=== PATIENT | female | born 2005 | race Two or more races ===

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

== ENCOUNTER 2024-08-10 21:03 | Emergency (ER) | payer MEDICAID, OTHER ==
[~2024-08-10] VITALS: Ht 157.5 cm; Wt 79.8 kg
[2024-08-10 21:57] LABS: Urine Bacteria None Seen /hpf (None Seen)
[2024-08-10 22:17] LABS: Urine Blood Negative /uL (Negative); Urine Clarity Turbid (Clear); Urine Color Light-Yellow (Yellow); Urine Protein, UAD Negative (Negative); Urine Specific Gravity 1.016 (1.001-1.035); Urine Squamous Epithelial Cell FEW /hpf (<5); Urine Urobilinogen Normal (Negative); Urine WBC 4 /hpf (0 - 5); Urine pH 5.5 (5.0-9.0)
[2024-08-10 22:20] LABS: Basophils # (auto) 0 10 ^3/uL (0-0.2); Basophils % (auto) 0.5 % (0.0-2.0); Eosinophils # (auto) 0.1 10 ^3/uL (0-0.8); Eosinophils % (auto) 1.3 % (0.0-7.0); Hematocrit 38.5 % (36.0-46.0); Hemoglobin 13.2 g/dL (12.2-16.2); Lymphocytes # (auto) 2.3 10 ^3/uL (0.4-5.4); Mean Corpuscular Hemoglobin 29.4 pg (28.0-32.0); Mean Corpuscular Hgb Conc. 34.3 g/dL (32.0-36.0); Mean Corpuscular Volume 85.8 fL (80.0-100.0); Monocytes # (auto) 0.3 10 ^3/uL (0-1.3); Neutrophils # (auto) 6.1 10 ^3/uL (1.6-8.6); Neutrophils % (auto) 69.2 % (37.0-80.0); Nucleated Red Blood Cells % 0.1 %; Platelet Count (auto) 359 10^3/uL (140-450); Red Blood Cells 4.48 10^6/uL (4.0-5.20); Red Cell Distribution Width 13.6 % (11.8-14.3); White Blood Cell 8.8 10^3/uL (4.4-10.8)
[2024-08-10 22:33] LABS: Alanine Aminotransferase 18 U/L (7-40); Albumin 4.7 g/dL (3.2-4.8); Anion Gap 6 (5-15); Aspartate Aminotransferase 19 U/L (13-40); BUN/Creatinine Ratio 14.6 (10.0-20.0); Bilirubin, Total 0.5 mg/dL (0.2-1.0); Blood Urea Nitrogen 12 mg/dL (9-23); Calcium 9.9 mg/dL (8.7-10.4); Carbon Dioxide 27 mmol/L (20-31); Chloride 104 mmol/L (98-107); Lipase 41 U/L (12-53); Potassium 3.7 mmol/L (3.5-5.1); Sodium 137 mmol/L (136-145); Total Protein 7.6 g/dL (5.7-8.2)
[2024-08-10 22:38] LABS: Alkaline Phosphatase 124 U/L (46-116); Glucose 143 mg/dL (74-106)
--- NOTE | 2024-08-10 23:35 | ED.PDOC ---
History of Present Illness HPI Comments 19 y/o F, with a Hx of CKF, HTN, H. pylori, hemorrhoids, and seizures, presents with c/o non-radiating, diffused abdominal pain, nausea, vomiting, coffee ground emesis, and generalized weakness, today. Patient endorses on unprovoked onset of symptoms that began, initially, with cramping pain in her lower abdomen 4 days ago prior to it radiating across her abdomen, with additional onset of remaining aforementioned symptoms, today. She comments on pain being constant and rates it a 7/10, with no relief or improvement with 1000mg [id number] Tylenol medication use. Patient also stated on vomitus being "black" in appearance, with last meal reported to be white rice, carrots, broccoli, chicken, and water. She endorses on history of eating healthy and having 1x episode of melena stools in the past when she had hemorrhoids then years ago. Patient reports no additional relevant or pertinent Hx, such as current , spoiled food intake, injuries, sick contact, or travel. She denies having any diarrhea, urinary symptoms, blood-streaked stools, melena, fever, chills, lightheadedness, or other associated symptoms or modifiers at this time. Chief Complaint: Abdominal Pain Time Seen by MD: 21:50 Reviewed Notes: Nurses Notes, Medications, Allergies Allergies: Coded Allergies: NO KNOWN ALLERGIES (Unverified , 06/03/17) Home Meds Active Scripts Cefpodoxime Proxetil (Cefpodoxime Proxetil) 200 Mg Tab, 200 MG PO BID for 10 Days, #20 TAB Prov:ASHLEY ZENG MD 04/15/22 Information Source: Patient Mode of Arrival: Ambulatory Severity: Moderate Timing: Days Duration: Since onset Prehospital treatment: None Review of Systems: REVIEW OF SYSTEMS: No fever, no chills, or fatigue HEENT: No sore throat, no earache, no congestion, no neck pain. Cardiac: No chest pain. No palpitations. Lungs: No shortness of breath, no cough. GI: diffused abdominal pain, nausea, vomiting, coffee-ground emesis, no diarrhea, no constipation : No dysuria, frequency, or urgency. No hematuria. Musculoskeletal: No joint pain , no joint swelling, no extremity edema. Skin: No rash, no itching. Neuro: Weakness, no headache, no dizziness Vital Signs Vital Signs Date Time Temp Pulse Resp B/P (MAP) Pulse Ox O2 Delivery O2 Flow Rate FiO2 08/11/24 00:23 93 16 97 Room Air* 0 21 08/10/24 23:42 98.7 119/85 (96) 98.7 Physical Exam General: Awake, alert and oriented. No acute distress. Skin: Skin in warm, dry and intact. Appropriate color for ethnicity. Nailbeds pink with no cyanosis. HEENT: The head is normocephalic and atraumatic. Conjunctivae are clear without exudates or hemorrhage. Sclera is non-icteric. EOM are intact. No signs of nystagmus. Eyelids are normal in appearance without swelling or lesions. Oral mucosa is pink and moist Neck: The neck is supple with normal range of motion. No JVD. Cardiac: Heart rate and rhythm are normal. No murmurs, gallops, or rubs are auscultated. Respiratory: No signs of respiratory distress. Lung sounds are clear in all lobes bilaterally without rales, ronchi, or wheezes. Abdominal: Generalized abdominal tenderness; otherwise, abdomen is soft, without distention. Bowel sounds are present and normoactive in all four quadrants. No CVA tenderness. Extremities: Upper and lower extremities are atraumatic in appearance without deformity or edema. Neurological: The patient is awake, alert and oriented to person, place, and time with normal speech. Speech is clear. There is no facial asymmetry. Psychiatric: Appropriate mood and affect. Good judgement and insight. No visual or auditory hallucinations. Past Medical History PAST MEDICAL HISTORY: CKF, HTN, Seizures Past Medical History (Other): H. pylori, hemorrhoids Surgical History: Denies all surgeries PLANT ELECTRICIAN History: Denies all PLANT ELECTRICIAN Hx Family History Family History: Reviewed,noncontributory to illness Social History Smoker: Other (vape) Alcohol: Denies ETOH Use Drugs: Denies Drug Use Lives In: Home Was a procedure done? Was a procedure done?: No Differential Dx Considerations may include: Differential diagnoses considered include: Abdominal aortic aneurysm, AR, esophageal rupture, intestinal obstruction, mesenteric ischemia, perforated viscus or solid organ rupture, CHF with hepatomegaly, pneumonia, abscess, appendicitis, biliary disease, diverticulitis, gastritis, gastroenteritis, hepatitis, hernia, inflammatory bowel disease, pancreatitis, peptic ulcer disease, urinary tract infection, ureteral colic, constipation, GERD, irritable syndrome, abdominal wall pain, nonspecific abdominal pain, herpes zoster. Also ruptured ectopic , ovarian torsion/cyst, tubo-ovarian abscess, PID, endometriosis, mittleschmerz. X-Ray, Labs, Meds, VS Vital Signs Date Time Temp Pulse Resp B/P (MAP) Pulse Ox O2 Delivery O2 Flow Rate FiO2 08/11/24 00:23 93 16 97 Room Air* 0 21 08/10/24 23:42 98.7 93 16 119/85 (96) 97 98.7 08/10/24 21:31 97.4 91 16 127/94 (105) 98 Lab Test 08/10/24 21:59 08/10/24 21:30 Range/Units White Blood Count 8.8 4.4-10.8 10^3/uL Red Blood Count 4.48 4.0-5.20 10^6/uL Hemoglobin 13.2 12.2-16.2 g/dL Hematocrit 38.5 36.0-46.0 % Mean Corpuscular Volume 85.8 80.0-100.0 fL Mean Corpuscular Hemoglobin 29.4 28.0-32.0 pg Mean Corpuscular Hemoglobin Concent 34.3 32.0-36.0 g/dL Red Cell Distribution Width 13.6 11.8-14.3 % Platelet Count 359 140-450 10^3/uL Mean Platelet Volume 8.0 6.9-10.8 fL Neutrophils (%) (Auto) 69.2 37.0-80.0 % Lymphocytes (%) (Auto) 26.0 10.0-50.0 % Monocytes (%) (Auto) 3.0 0.0-12.0 % Eosinophils (%) (Auto) 1.3 0.0-7.0 % Basophils (%) (Auto) 0.5 0.0-2.0 % Neutrophils # (Auto) 6.1 1.6-8.6 10 ^3/uL Lymphocytes # (Auto) 2.3 0.4-5.4 10 ^3/uL Monocytes # (Auto) 0.3 0-1.3 10 ^3/uL Eosinophils # (Auto) 0.1 0-0.8 10 ^3/uL Basophils # (Auto) 0 0-0.2 10 ^3/uL Nucleated Red Blood Cells 0.1 % Sodium Level 137 136-145 mmol/L Potassium Level 3.7 3.5-5.1 mmol/L Chloride Level 104 98-107 mmol/L Carbon Dioxide Level 27 20-31 mmol/L Anion Gap 6 5-15 Blood Urea Nitrogen 12 9-23 mg/dL Creatinine 0.82 0.550-1.02 mg/dL Glomerular Filtration Rate Calc 104 >90 mL/min BUN/Creatinine Ratio 14.6 10.0-20.0 Serum Glucose 143 H 74-106 mg/dL Lactic Acid Level 1.8 0.4-2.0 mmol/L Calcium Level 9.9 8.7-10.4 mg/dL Total Bilirubin 0.5 0.2-1.0 mg/dL Aspartate Amino Transferase (AST) 19 13-40 U/L Alanine Aminotransferase (ALT) 18 7-40 U/L Alkaline Phosphatase 124 H 46-116 U/L Total Protein 7.6 5.7-8.2 g/dL Albumin 4.7 3.2-4.8 g/dL Lipase 41 12-53 U/L Urine Color Light-yellow Yellow Urine Clarity Turbid H Clear Urine pH 5.5 5.0-9.0 Urine Specific Jarales 1.016 1.001-1.035 Urine Protein Negative Negative Urine Ketones Negative Negative Urine Blood Negative Negative /uL Urine Nitrite Negative Negative Urine Bilirubin Negative Negative Urine Urobilinogen Normal Negative mg/dL Urine Leukocyte Esterase Negative Negative /uL Urine RBC <1 0 - 4 /hpf Urine WBC 4 0 - 5 /hpf Urine Squamous Epithelial Cells Few <5 /hpf Urine Bacteria None seen None Seen /hpf Urine Glucose Normal Normal mg/dL Urine Test Negative Negative Current Medications Medications (Trade) Dose Ordered Sig/Cinthya Route Start Time Stop Time Status Last Admin Pantoprazole Sodium (Protonix) 40 mg ONCE ONCE IV 08/10/24 22:00 08/10/24 22:01 DC 08/11/24 00:14 Ondansetron HCl (Zofran) 4 mg ONCE ONCE IV 08/10/24 22:00 08/10/24 22:01 DC 08/11/24 00:14 Sodium Chloride 1,000 ml @ 1,000 mls/hr Q1H ONCE IV 08/10/24 22:00 08/10/24 22:59 DC 08/11/24 00:14 Ketorolac Tromethamine (Toradol Injection) 15 mg ONCE ONCE IV 08/10/24 22:30 08/10/24 22:31 DC 08/11/24 00:15 Time of 1ST Reevaluation: 22:20 Reevaluation 1ST: Unchanged Patient Education/Counseling: Diagnosis, Treatment Family Education/Counseling: No Family Present Departure 1 Departure Time of Disposition: 00:40 Impression: Primary Impression: Abdominal pain Disposition: 01 HOME / SELF CARE / HOMELESS Condition: Stable Additional Instructions: ED DISCHARGE INSTRUCTIONS Instructions: Please read all instructions provided in this packet carefully. Although you have been discharged from the Emergency Department, this does not mean that you have a "clean bill of health". No definitive diagnosis for your symptoms has been made today. It is possible that you are in the process of developing a serious illness. This is why you must return to the ED without fail if any new or worsening symptoms (especially if your symptoms include chest pain, trouble breathing, abdominal pain, fever, headache, confusion, trouble seeing, or trouble walking) It is also very important that you see a primary care doctor within the next 3-5 days to follow up. If you are unable to get an appointment, return to the ED for re-evaluation. Abdominal Pain: Care Instructions Overview Abdominal pain has many possible causes. Some aren't serious and get better on their own in a few days. Others need more testing and treatment. If your pain continues or gets worse, you need to be rechecked and may need more tests to find out what is wrong. You may need surgery to correct the problem. Don't ignore new symptoms, such as fever, nausea and vomiting, urination problems, pain that gets worse, and dizziness. These may be signs of a more serious problem. If you are not getting better, you may need more tests or treatment. The doctor has checked you carefully, but problems can develop later. If you notice any problems or new symptoms, get medical treatment right away. Follow-up care is a mack part of your treatment and safety. Be sure to make and go to all appointments, and call your doctor if you are having problems. It's also a good idea to know your test results and keep a list of the medicines you take. How can you care for yourself at home? Rest until you feel better. To prevent dehydration, drink plenty of fluids. Choose water and other clear liquids until you feel better. If you have kidney, heart, or liver disease and have to limit fluids, talk with your doctor before you increase the amount of fluids you drink. When you feel like eating, start with small amounts. Do not have alcohol, caffeine, or spicy, hot, or high-fat foods for a day or two. Avoid anti-inflammatory medicines such as aspirin, ibuprofen (Advil, Motrin), and naproxen (Aleve). These can cause stomach upset. Talk to your doctor if you take daily aspirin for another health problem. When should you call for help? Call 911 anytime you think you may need emergency care. For example, call if: You passed out (lost consciousness). You pass maroon or very bloody stools. You vomit blood or what looks like coffee grounds. You have severe belly pain. Call your doctor now or seek immediate medical care if: Your pain gets worse, especially if it becomes focused in one area of your belly. You have a new or higher fever. Your stools are black and look like tar, or they have streaks of blood. You have unexpected vaginal bleeding. You have symptoms of a urinary tract infection. These may include: Pain when you urinate. Urinating more often than usual. Blood in your urine. You are dizzy or lightheaded, or you feel like you may faint. Watch closely for changes in your health, and be sure to contact your doctor if: You are not getting better as expected. Credits for Abdominal Pain: Care Instructions Current as of: May 15, 2023 Author: [employer], [facility] Staff Clinical Review Board All [employer] education is reviewed by a team that includes physicians, nurses, advanced practitioners, registered dieticians, and other healthcare professionals. Comments [age] female with a history of H pylori presented with abdominal pain. No peritoneal signs on abdominal exam. No evidence of acute abdomen at this time. patient is well appearing. Labs show no leukocytosis or elevates of LFTs. Imaging shows no acute process. Patient is afebrile. Patient is not hypotensive. Low suspicion for acute hepatobiliary disease (including acute cholecystitis, acute pancreatitis, PUD (including perforation), acute infectious process (pneumonia, hepatitis, pyelonephritis), acute appendicitis, vascular catastrophe, bowel obstructions, viscous perforatio. Presentation not consistent with other acute, emergent causes of abdominal pain at this time Patient well-appearing, nontoxic. Advised prompt follow-up with PCP, return to the ED with any new, worsening or concerning symptoms. I reviewed the following notes from the pt's past medical encounters: Encounter for abdominal pain August 16, 2022 The following tests were ordered, and results were reviewed by me: (See diagnostic results section) The following test were independently interpreted by me: N/A Additional information was gathered from interviewing the following independent historians: (N/A) I reviewed and agreed with the following test results read by other providers: N/A I discussed treatments and results with medical personnel and: N/A Decision regarding hospitalization or escalation of hospital level of care: Risks and benefits of admission for further treatment of patient's condition was considered however due to patient's stable condition patient will be discharged to follow up closely or return to care for worsening of condition or inability to follow up. Critical Care Note Critical Care Time?: No Stability Stability form required: No Heart Score Heart Score: Heart Score Response (Comments) Value History N/A 0 EKG N/A 0 Age N/A 0 Risk Factors N/A 0 Troponin N/A 0 Total 0 I personally scribed for RUSSELL ELIAS MD ([email or web address]) on 08/10/24 at 23:35. Electronically submitted by Haim Edward ([email or web address]). I personally scribed for RUSSELL ELIAS MD ([email or web address]) on 08/11/24 at 00:17. Electronically submitted by Haim Edward ([email or web address]). RUSSELL ELIAS MD Aug 10, 2024 23:35
[2024-08-10 23:42] VITALS: BP 119/85; TEMP 98.7
--- NOTE | 2024-08-11 00:03 | DVH ---
CLINICAL HISTORY: Right upper quadrant, right lower quadrant pain, coffee-grou TECHNIQUE: CT of the abdomen and pelvis was performed with intravenous contrast. This exam was perfor med according to our departmental dose optimization program. Up-to-date CT equipment and radiation do se reduction techniques are utilized as appropriate. CTDIVol: [CTDIvol] mGy DLP: 540.94 mGy-cm WID: COMPARISON: None FINDINGS: Lower Thorax: Unremarkable. Liver and Biliary system: Mild hepatomegaly with the right lobe of the liver measuring 18 cm cranioca udal. There is borderline hepatic steatosis. No discrete hepatic lesion. Major portal veins are paten t. Gallbladder is normal caliber. There is no biliary ductal dilatation. Spleen: Unremarkable. Adrenal Glands and Kidneys: Unremarkable. Pancreas and Retroperitoneum: Unremarkable. Aorta and Major Vessels: Unremarkable. Bowel, Mesentery and Peritoneal space: Trace ascites in the pelvis likely physiologic. Normal caliber small and large bowel. Normal appendix. No free air or fluid collection. Pelvis: Retroverted uterus. Grossly normal ovaries. Normal urinary bladder. No pelvic lymphadenopath y. Abdominal wall and Osseous Structures: No destructive osseous lesion. IMPRESSION: 1. No acute abnormality in the abdomen or pelvis. 2. Mild hepatomegaly with borderline hepatic steatosis.
[2024-08-11] MEDS: PANTOPRAZOLE 40 MG/10 ML VIAL INJ IV ONE (00:14)
[2024-08-11] MEDS: SODIUM CHLORIDE 0.9% 1,000 ML IV ONE (00:14)
[2024-08-11] MEDS: ONDANSETRON HCL 4 MG/2 ML VIAL IV ONE (00:14)
[2024-08-11] MEDS: KETOROLAC TROMETH 30 MG/ML 1ML VIAL IV ONE (00:15)
[2024-08-11] MEDS: IOHEXOL 300 MG/ML 100ML BOTTLE IJ ONE (00:15)
[2024-08-11 00:23] VITALS: PULSE 93; RESP 16; O2SAT 97
== END 2024-08-11 01:39 | disposition home or self-care (01) ==
LOC: ER 21:03
DX: R10.84 Generalized abdominal pain (principal); I10 Essential (primary) hypertension
CPT/HCPCS: 36415; 74177; 80053; 81001; 81025; 83605; 83690; 85025; 96361; 96374; 96375; 99285; J1885; J2405; J2470; J7030; Q9967

== ENCOUNTER 2024-09-16 13:48 | Emergency (ER) | payer MEDICAID ==
[~2024-09-16] VITALS: Ht 157.5 cm; Wt 75.0 kg
[2024-09-16 13:55] VITALS: BP 116/76; PULSE 78; RESP 16; O2SAT 100
--- NOTE | 2024-09-16 14:10 | ED.PDOC ---
History of Present Illness HPI Comments 19 y/o F, BIBA with PMHX of HTN and Seizures presents to the ED for CC of syncopal episode. Per EMS, patient states that she was giving her child a bath when she suddenly passed out and started foaming at the mouth. Patient endorses on, currently being 7 weeks ; last menstrual period was on 08/01/24. Patient denies head injury, headache, weakness, vaginal bleeding, vaginal cramping, abdominal pain or nausea. No other associated symptom's, modifiers, recent injuries or sick contacts at this time. Chief Complaint: Syncope Time Seen by MD: 14:06 Reviewed Notes: Nurses Notes, Carton Marker Machine Notes, Medications, Allergies Allergies: Coded Allergies: NO KNOWN ALLERGIES (Unverified , 06/03/17) Home Meds Active Scripts Cefpodoxime Proxetil (Cefpodoxime Proxetil) 200 Mg Tab, 200 MG PO BID for 10 Days, #20 TAB Prov:ASHLEY ZENG MD 04/15/22 Information Source: Patient, Emergency Med Personnel Mode of Arrival: EMS Severity: Moderate Timing: Minutes Duration: Since onset Prehospital treatment: None Past Medical History PAST MEDICAL HISTORY: CKF, HTN, Seizures Surgical History: Denies all surgeries UNDERCOLLAR BASTER History: Denies all UNDERCOLLAR BASTER Hx Family History Family History: Reviewed,noncontributory to illness Social History Smoker: Other Alcohol: Denies ETOH Use Drugs: Denies Drug Use Lives In: Home Constitutional: denies: chills, diaphoresis, fatigue, fever, malaise, sweats, weakness, others EENTM: denies: blurred vision, double vision, ear bleeding, ear discharge, ear drainage, ear pain, ear ringing, eye pain, eye redness, hearing loss, mouth pain, mouth swelling, nasal discharge, nose bleeding, nose congestion, nose pain, photophobia, tearing, throat pain, throat swelling, voice changes, others Respiratory: denies: cough, hemoptysis, orthopnea, SOB at rest, shortness of breath, SOB with excertion, stridor, wheezing, others Cardiovascular: denies: chest pain, dizzy spells, diaphoresis, Dyspnea on exertion, edema, irregular heart beat, left arm pain, lightheadedness, palpitations, PND, syncope, others Gastrointestinal: denies: abdomen distended, abdominal pain, blood streaked bowels, constipated, diarrhea, dysphagia, difficulty swallowing, hematemesis, melena, nausea, poor appetite, poor fluid intake, rectal bleeding, rectal pain, vomiting, others Genitourinary: denies: abnormal vagina bleeding, burning, dyspareunia, dysuria, flank pain, frequency, hematuria, incontinence, pain, , vagina discharge, urgency, others Neurological: denies: dizziness, fainting, headache, left sided numbness, left sided weakness, numbness, paresthesia, pre-existing deficit, right sided numbness, right sided weakness, seizure, speech problems, tingling, tremors, weakness, others Musculoskeletal: denies: back pain, gout, joint pain, joint swelling, muscle pain, muscle stiffness, neck pain, others Integumetry: denies: bruises, change in color, change in hair/nails, dryness, laceration, lesions, lumps, rash, wounds, others Allergic/Immunocompromised: denies: Difficulty Healing, Frequent Infections, Hives, Itching, others Hematologic/Lymphatic: denies: anemia, blood clots, easy bleeding, easy bruising, swollen glands, others Endocrine: denies: excessive hunger, excessive sweating, excessive thirst, excessive urination, flushing, intolerance to cold, intolerance to heat, u nexplained weight gain, unexplained weight loss, others Psychiatric: denies: anxiety, bipolar disorder, depression, hopeless, panic disorder, schizophrenia, sleepless, suicidal, others All Other Systems: Reviewed and Negative Physical Exam General Appearance: Moderate Distress HEENT: Normal ENT Inspection, Pharynx Normal, TMs Normal Neck: Full Range of Motion, Non-Tender, Normal, Normal Inspection Respiratory: Chest Non-Tender, Lungs Clear, No Accessory Muscle Use, No Respiratory Distress, Normal Breath Sounds Cardiovascular: No Edema, No JVD, No Murmur, No Gallop, Normal Peripheral Pulses, Regular Rate/Rhythm Breast Exam: Deferred Gastrointestinal: No Organomegaly, Non Tender, No Pulsatile Mass, Normal Bowel Sounds, Soft Genitalia: Deferred Pelvic: Deferred Rectal: Deferred Extremities: No calf tenderness, Normal capillary refill, Normal inspection, Normal range of motion, Non-tender, No pedal edema Musculoskeletal : Apperance: Normal Neurologic: Alert, mining support worker II-XII nml as Tested, No Motor Deficits, Normal Affect, Normal Mood, No Sensory Deficits Cerebellar Function: Normal Reflexes: Normal Skin: Dry, Normal Color, Warm Peripheral Pulses: 3+ Radial (R), 3+ Radial (L) Lymphatic: No Adenopathy Was a procedure done? Was a procedure done?: No Differential Dx Considerations may include: Anemia Electrolyte imbalance X-Ray, Labs, Meds, VS Vital Signs Date Time Temp Pulse Resp B/P (MAP) Pulse Ox O2 Delivery O2 Flow Rate FiO2 09/16/24 13:55 98.2 78 16 116/76 (89) 100 Patient alert. Complaining of vaginal cramping. Vitals stable. Answering all questions. No sign of distress. Ambulating without difficulty. Establish intravenous access. Was given fluids. Explained to the patient. Was told to follow up with her OBGYN. Was told to follow up with her primary care physician. Was told to come back if there is any problem. Time of 1ST Reevaluation: 14:36 Reevaluation 1ST: Improved Patient Education/Counseling: Diagnosis, Treatment Family Education/Counseling: No Family Present Additional Information I reviewed the following notes from patient's past medical history: 08/10/24 DX: ABDOMINAL PAIN The following tests were ordered, and results were reviewed by me: BETA HCG, QUANTITATIVE, OB US Additional Information was gathered from interviewing the following independent historians: EMS I reviewed and agreed with the following test results read by other providers: OB US I discussed treatment and results with medical personnel and: PATIENT Departure 1 Departure Time of Disposition: 15:16 Impression: Primary Impression: Normal Qualified Codes: Z34.90 - Encounter for supervision of normal , unspecified, unspecified trimester Disposition: 01 HOME / SELF CARE / HOMELESS Condition: Good Discharged With: Self Critical Care Note Critical Care Time?: No Stability Stability form required: No Heart Score Heart Score: Heart Score Response (Comments) Value History N/A 0 EKG N/A 0 Age N/A 0 Risk Factors N/A 0 Troponin N/A 0 Total 0 I personally scribed for HELIO BRADLEY MD ([email or web address]) on 09/16/24 at 14:10. Electronically submitted by Peggy Negrete ([email or web address]). I personally scribed for HELIO BRADLEY MD ([email or web address]) on 09/16/24 at 14:48. Electronically submitted by Peggy Negrete ([email or web address]). I personally scribed for HELIO BRADLEY MD ([email or web address]) on 09/16/24 at 15:08. Electronically submitted by Peggy Negrete ([email or web address]). HELIO BRADLEY MD Sep 16, 2024 14:10
[2024-09-16] MEDS ORDERED: SODIUM CHLORIDE 0.9% 1,000 ML IV ONE (15:30)
--- NOTE | 2024-09-16 17:57 | DVH ---
OB ULTRASOUND <14 WEEKS: HISTORY: cramping TECHNIQUE: Multiple real-time grayscale sonographic images of the pelvis with duplex Doppler color f low, spectral and M-mode analysis. TRANSDUCERS: Transabdominal . FINDINGS: The uterus measures 7 x 6.5 x 8.2 cm The cervix not measured Right ovary measures 2.4 x 2.3 x 2.4 cm with normal Doppler color flow Left ovary not visualized IUP single live fetus at 6 weeks 1 day average ultrasound age based on mean crown-rump length of 0.54 cm and gestational sac size of 1.63 cm heart rate detected at 119 beats per minute. Yolk sac visualized. Amniotic fluid adequate Latricia-gestational space: Within normal limits IMPRESSION: 1. IUP single live fetus 6 weeks 1 day AUA corresponding to an YURI of 05 11 2025. 2.
== END 2024-09-16 18:16 | disposition left against medical advice (07) ==
LOC: ER 13:48 → EDBD 13:48 → EDUNIT# 13:48 → ER 18:16
DX: Z34.01 Encounter for supervision of normal first pregnancy, first trimester (principal); I12.9 Hypertensive chronic kidney disease with stage 1 through stage 4 chronic kidney disease, or unspecified chronic kidney disease; R10.2 Pelvic and perineal pain; N18.9 Chronic kidney disease, unspecified; N17.9 Acute kidney failure, unspecified; F17.200 Nicotine dependence, unspecified, uncomplicated; Z3A.01 Less than 8 weeks gestation of pregnancy
CPT/HCPCS: 36415; 76801; 82947; 84702